=== PATIENT | female | born 1970 | race Caucasian/White ===

== ENCOUNTER 2020-02-24 14:57 | Emergency (ER) | payer BC, MEDICAID, SELFPAY ==
[2020-02-24 15:04] VITALS: BP 134/85; PULSE 93; RESP 20; TEMP 37; O2SAT 99
--- NOTE | 2020-02-24 15:12 | ED.GENADULT ---
HPI - General Adult General Chief complaint: Wound/Laceration Stated complaint: Abcess on back of neck Time Seen by Provider: 02/24/20 15:11 Source: patient and RN notes reviewed Mode of arrival: ambulatory Limitations: no limitations History of Present Illness HPI narrative: 49-year-old female presents with complaints of with redness, tenderness, and swelling to RT posterior side of edge of hairline for the past 3-4 days. Tender to touch. Intermittent yellow drainage. History of skin abscess and MRSA. No fever or chills. No diarrhea, abdominal pain, nausea, and vomiting. Tolerating po intake well. Denies headaches, weakness, fatigue, myalgia. Denies chest pain or dyspnea. Denies cough, rhinorrhea, congestion, and sore throat. Denies recent traveling. Denies concern for COVID-19 or exposures been home since [id number] order except for essential household needs, work, and return home. Remains active. Some parts of this dictation were generated by voice recognition software and may contain typographical and/or grammatical inaccuracies. Related Data Home Medications Medication Instructions Recorded Confirmed glipizide 10 mg PO DAILY 02/24/20 02/24/20 metformin 1,000 mg PO BID 02/24/20 02/24/20 Allergies Allergy/AdvReac Type Severity Reaction Status Date / Time No Known Allergies Allergy Verified 02/24/20 15:06 Review of Systems Review of Systems: Narrative: CONSTITUTIONAL: Denies fever, chills, sweats. EYES: Denies visual changes, redness, discharge. ENT: Denies rhinorrhea, congestion, sore throat, otalgia. CARDIOVASCULAR: Denies chest pain, palpitations, edema. RESPIRATORY: Denies dyspnea, wheezing, cough. GASTROINTESTINAL: Denies abdominal pain, nausea, vomiting, diarrhea. GENITOURINARY: Denies dysuria, hematuria, abnormal discharge. SKIN: Denies rash or itching. Complains of redness, tenderness, and swelling to RT posterior side of edge of hairline and intermittent yellow drainage. MUSCULOSKELETAL: Denies acute back pain, joint pain, or myalgia. NEUROLOGIC: Denies numbness or focal weakness. PSYCHIATRIC: Denies anxiety or depression. All systems reviewed & are unremarkable except as noted in HPI and below. [facility] Past Medical History Medical History (Updated 02/24/20 @ 15:50 by SMILEY Resendiz) Diabetes Hypercholesteremia Menopause MRSA (methicillin resistant Staphylococcus aureus) Surgical History Surgical History (Updated 02/24/20 @ 15:50 by SMILEY Resendiz) History of cholecystectomy History of tubal ligation Family History Family History (Updated 02/24/20 @ 15:47 by SMILEY Resendiz) Mother Cervical cancer Grandparent Cervical cancer Social History Social History (Updated 02/24/20 @ 15:48 by SMILEY Resendiz) Smoking packs per day: 0.5 Smoking cigarettes per day: 10.0 Years smoked: 20 Smoking pack-years: 10.00 Smoking status: Current every day smoker Tobacco type: cigarettes Second hand tobacco smoke exposure: No Alcohol intake: never Substance use: never Living arrangements: alone Occupation/Education: occupation Additional occupation/education comments: [employer] Gender identity (if verbalized by the patient): Female Comments At time of signature, I have reviewed and agree with nursing past medical, surgical, social, and family history. Please see nursing chart for further information. Past medical history is pertinent to the presenting complaint. Exam Narrative: Exam Narrative: GENERAL: This is a well-nourished, well-developed patient, in no apparent distress. Talking in full sentences without deficit and ambulate with steady gait without dyspnea. HEAD: normocephalic, atraumatic. EYES: PERRL. Sclera clear/white. Vision is grossly intact. NECK: Neck supple, non-tender without lymphadenopathy, masses or thyromegaly. CARDIOVASCULAR: Regular rate and rhythm without murmurs, gallops, or rubs. RESPIRATORY: Clear
== END 2020-02-24 15:32 | disposition home or self-care (01) ==
PROVIDERS: Emergency Provider Nurse Practitioner Family
DX: L02.811 Cutaneous abscess of head [any part, except face] (principal); E11.9 Type 2 diabetes mellitus without complications; E78.00 Pure hypercholesterolemia, unspecified; Z86.14 Personal history of Methicillin resistant Staphylococcus aureus infection; Z79.84 Long term (current) use of oral hypoglycemic drugs; F17.210 Nicotine dependence, cigarettes, uncomplicated
CPT/HCPCS: 99213; G0463